=== PATIENT | male | born 1990 | race Caucasian/White ===

== ENCOUNTER 2016-12-29 17:02 | Emergency (ER) | payer SELFPAY ==
[~2016-12-29] VITALS: Ht 162.6 cm; Wt 110.0 kg
[2016-12-29 17:02] VITALS: BP 129/80; PULSE 112; RESP 20; TEMP 97.8; O2SAT 94
[~2016-12-29 17:02] MED LIST: ALBU17I; ALBU6.7H INH; PRED50 PO
[2016-12-29] MEDS ORDERED: SODIUM CHLOR 0.9% 1000 ML INJ 1,000 ML IV SCH (21:19)
--- NOTE | 2016-12-29 21:26 | PD ---
HPI Chief Complaint: Flank/Kidney Pain Time Seen by Provider: 21:19 Travel History International Travel<30 days: No Contact w/Intl Traveler<30days: No Traveled to known affect area: No History of Present Illness HPI Patient is a 26-year-old male who presents to emergency room with complaints of abdominal pain. Patient reports that 4 days ago, he woke up in the morning and had bilateral flank pain. Patient reports that the flank pain does radiate to his stomach. Patient reports that pain is persistent but reports that he has episodes of severe pain at times. Patient reports no nausea or vomiting with the symptoms. Patient denies any fevers or chills, constipation diarrhea. Patient denies hematuria, urinary urgency or frequency, penile discharge, denies history of stones in the past. Patient with no recent travels or trips. PFSH Past Medical History Asthma: Yes Autoimmune Disease: No Blood Disorders: No Anxiety: No Depression: No Cardiovascular Problems: No Developmental Delay: No Genitourinary: No Headaches: Yes (occasional;) Musculoskeletal: No Respiratory: Yes Past Surgical History Surgical History: No Previous Surgery Social History Alcohol Use: No Tobacco Use: No Substance Use: No Allergies-Medications (Allergen,Severity, Reaction): Coded Allergies: Dairy (Verified Allergy, Severe, 12/29/16) Reported Meds & Prescriptions Reported Meds & Active Scripts Active Reported Albuterol Neb (Albuterol Sulfate) 0.63 Mg/3 Ml Neb 0.63 Mg NEB Q4HR NEB PRN Review of Systems General / Constitutional: No: Fever Eyes: No: Visual changes HENT: No: Headaches Cardiovascular: No: Chest Pain or Discomfort Respiratory: No: Shortness of Breath Gastrointestinal: Positive: Abdominal Pain Genitourinary: Positive: Flank Pain, No: Dysuria Musculoskeletal: No: Pain Skin: No Rash Neurologic: No: Weakness Psychiatric: No: Depression Endocrine: No: Polydipsia Hematologic/Lymphatic: No: Easy Bruising Physical Exam Narrative GENERAL: Mild distress SKIN: Focused skin assessment warm/dry. HEAD: Atraumatic. Normocephalic. EYES: Pupils equal and round. No scleral icterus. No injection or drainage. ENT: No nasal bleeding or discharge. Mucous membranes pink and moist. NECK: Trachea midline. No JVD. CARDIOVASCULAR: Regular rate and rhythm. No murmur appreciated. RESPIRATORY: No accessory muscle use. Clear to auscultation. Breath sounds equal bilaterally. GASTROINTESTINAL: Abdomen soft, nondistended. Patient with bilateral flank pain with tenderness to lower abdomen, no rebound or guarding on exam MUSCULOSKELETAL: No obvious deformities. No clubbing. No cyanosis. No edema. NEUROLOGICAL: Awake and alert. No obvious cranial nerve deficits. Motor grossly within normal limits. Normal speech. PSYCHIATRIC: Appropriate mood and affect; insight and judgment normal. Data Data Last Documented VS Vital Signs Date Time Temp Pulse Resp B/P Pulse Ox O2 Delivery O2 Flow Rate FiO2 12/29/16 21:35 93 17 12/29/16 21:35 128/60 97 Room Air 12/29/16 17:02 97.8 Orders Complete Blood Count With Diff (12/29/16 21:19) Comprehensive Metabolic Panel (12/29/16 21:19) Lipase (12/29/16 21:19) Urinalysis - C+S If Indicated (12/29/16 21:19) Ct Abd/Pel W/O Iv Contrast (12/29/16 21:19) Iv Access Insert/Monitor (12/29/16 21:19) Morphine Inj (Morphine Inj) (12/29/16 21:30) Sodium Chlor 0.9% 1000 Ml Inj (Ns 1000 M (12/29/16 21:19) Sodium Chloride 0.9% Flush (Ns Flush) (12/29/16 21:30) Gc And Chlamydia Pcr (12/29/16 21:19) Diazepam (Valium) (12/29/16 21:30) Labs Laboratory Tests Test 12/29/16 21:50 White Blood Count 10.6 TH/MM3 Red Blood Count 5.10 MIL/MM3 Hemoglobin 14.8 GM/DL Hematocrit 42.4 % Mean Corpuscular Volume 83.1 FL Mean Corpuscular Hemoglobin 29.0 PG Mean Corpuscular Hemoglobin 34.9 % Concent Red Cell Distribution Width 12.7 % Platelet Count 220 TH/MM3 Mean Platelet Volume 8.6 FL Neutrophils (%) (Auto) 61.9 % Lymphocytes (%) (Auto) 23.4 % Monocytes (%) (Auto) 7.6 % Eosinophils (%) (Auto) 6.7 % Basophils (%) (Auto) 0.4 % Neutrophils # (Auto) 6.6 TH/MM3 Lymphocytes # (Auto) 2.5 TH/MM3 Monocytes # (Auto) 0.8 TH/MM3 Eosinophils # (Auto) 0.7 TH/MM3 Basophils # (Auto) 0.0 TH/MM3 CBC Comment DIFF FINAL Differential Comment Urine Color YELLOW Urine Turbidity CLEAR Urine pH 7.0 Urine Specific [place] 1.015 Urine Protein NEG mg/dL Urine Glucose (UA) NEG mg/dL Urine Ketones NEG mg/dL Urine Occult Blood NEG Urine Nitrite NEG Urine Bilirubin NEG Urine Urobilinogen LESS THAN 2.0 MG/DL Urine Leukocyte Esterase NEG Urine RBC LESS THAN 1 /hpf Urine WBC 4 /hpf Urine Squamous Epithelial <1 /hpf Cells Microscopic Urinalysis Comment CULT NOT INDICATED Sodium Level 138 MEQ/L Potassium Level 4.0 MEQ/L Chloride Level 101 MEQ/L Carbon Dioxide Level 29.7 MEQ/L Anion Gap 7 MEQ/L Blood Urea Nitrogen 10 MG/DL Creatinine 0.97 MG/DL Estimat Glomerular Filtration 94 ML/MIN Rate Random Glucose 87 MG/DL Calcium Level 8.7 MG/DL Total Bilirubin 0.6 MG/DL Aspartate Amino Transf 14 U/L (AST/SGOT) Alanine Aminotransferase 28 U/L (ALT/SGPT) Alkaline Phosphatase 102 U/L Total Protein 7.6 GM/DL Albumin 3.7 GM/DL Lipase 559 U/L MDM Medical Decision Making Medical Screen Exam Complete: Yes Emergency Medical Condition: Yes Interpretation(s) Vital Signs Date Time Temp Pulse Resp B/P Pulse Ox O2 Delivery O2 Flow Rate FiO2 12/29/16 17:02 97.8 112 20 129/80 94 Room Air Differential Diagnosis Muscle strain, pyelonephritis, urethritis, UTI, kidney stone, colitis, appendicitis Narrative Course 26-year-old male who presents to emergency room with complaints of bilateral flank pain and 4 days ago after he woke up from sleep. Patient reports that this pain has been persistent, has been intermittently worse. Patient reports that he did take a Motrin last night which seemed to help with his symptoms. Patient reports that he had similar symptoms which resolved after 2 days, reports that since this is 4 days of persistent pain, he decided to come to the ER for evaluation. Patient does have bilateral flank pain on exam with mild tenderness to lower abdomen, CT of abdomen and pelvis ordered to rule out kidney stone vs pyelonephritis. UA ordered to evaluate for possible UTI. Symptoms could be most likely from muscle strain , will treat with muscle relaxer and pain medications. BMP ordered to evaluate for renal fxn. CBC & BMP Diagram 12/29/16 21:50 Last Impressions Abdomen/Pelvis CT 12/29/169 Signed Impressions: Service Date/Time: Thursday, December 29, 2016 21:21 - CONCLUSION: 1. Minimal inflammatory changes are noted in the region of the uncinate process of the pancreas or duodenum raising the possibility of minimal acute pancreatitis or duodenitis. 2. No acute obstructive uropathy. Celestino Padilla MD wbc: wnl bmp: wnl LIPASE: 559 ct abdomen and pelvis: Minimal inflammatory changes are noted in the region of the uncinate process of the pancreas or the duodenum raising possibilities of minimal acute pancreatitis or duodenitis. I did review all labs and all studies with patient in detail. patient with most likely acute pancreatitis. Copies of patients CT report given to him. Patient comfortable with being discharged to home, reports "I'm hungry and want to eat a burger." Discussed with patient and his mother signs and symptoms of when to return to ER. Discussed need for clear liquid diet. Patient will follow up with pcp and GI doc and will return to ER as needed Diagnosis Primary Impression: Pancreatitis Qualified Code: K85.90 - Acute pancreatitis, unspecified complication status, unspecified pancreatitis type Referrals: Romel King MD Patient Instructions: General Instructions, Narcotic given in the ED Additional Instructions: Please provide patient with a copy of his studies and lab work at discharge Please eat a bland diet Please follow up with your primary care doctor as well as technical sales associate Please return to ER as needed or if symptoms progress or worsen or if you develop fever/chills, nausea or vomiting Disposition: 01 DISCHARGE HOME Condition: Stable Yudith Rodriguez DO Dec 29, 2016 21:26
[2016-12-29] MEDS ORDERED: DIAZEPAM 2 MG TAB PO ONE (21:30)
[2016-12-29] MEDS ORDERED: MORPHINE SULFATE 4 MG/ML INJ IV PUSH ONE (21:30)
[2016-12-29] MEDS ORDERED: SODIUM CHLORIDE 0.9% FLUSH 10 ML FLUSH IV FLUSH PRN (21:30)
[2016-12-29 21:35] VITALS: BP 128/60; PULSE 93; RESP 17; O2SAT 97
[2016-12-29] MEDS ORDERED: ALBU0.63 NEB (21:35)
--- NOTE | 2016-12-29 21:47 | RADRPT ---
EXAM DATE/TIME: 12/29/2016 21:21 [facility] COMPARISON: No previous studies available for comparison. INDICATIONS : Bilateral flank pain. ORAL CONTRAST: No oral contrast ingested. RADIATION DOSE: 29.15 CTDIvol (mGy) MEDICAL HISTORY : None SURGICAL HISTORY : None. ENCOUNTER: Initial ACUITY: 4 - 6 days PAIN SCALE: 7/10 LOCATION: Bilateral flank TECHNIQUE: Volumetric scanning of the abdomen and pelvis was performed. Using automated exposure control and ad justment of the mA and/or kV according to patient size, radiation dose was kept as low as reasonably achievable to obtain optimal diagnostic quality images. FINDINGS: LOWER LUNGS: The visualized lower lungs are clear. LIVER: Homogeneous density without lesion. There is no dilation of the biliary tree. No calcified gallston es. SPLEEN: Normal size without lesion. PANCREAS: Minimal inflammatory changes are noted in the region of the uncinate process of the pancreas or duode num raising the possibility of minimal acute pancreatitis or duodenitis. KIDNEYS: Normal in size and shape. There is no mass, stone, or hydronephrosis. ADRENAL GLANDS: Within normal limits. VASCULAR: There is no aortic aneurysm. BOWEL/MESENTERY: Minimal inflammatory changes are noted in the expected region of the second and third portions of the duodenum raising possibility of mild duodenitis. The stomach and colon demonstrate no acute abnormal ity. There is no free intraperitoneal air or fluid. The appendix is normal. ABDOMINAL WALL: Within normal limits. RETROPERITONEUM: There is no lymphadenopathy. BLADDER: No wall thickening or mass. REPRODUCTIVE: Within normal limits. INGUINAL: There is no lymphadenopathy or hernia. MUSCULOSKELETAL: Within normal limits for patient age. CONCLUSION: 1. Minimal inflammatory changes are noted in the region of the uncinate process of the pancreas or du odenum raising the possibility of minimal acute pancreatitis or duodenitis. 2. No acute obstructive uropathy. Celestino Padilla MD on December 29, 2016 at 21:41 Board Certified Radiologist. This report was verified electronically.
[2016-12-29 22:17] LABS: BLOOD, URINE NEG (NEG); COMMENT (UR) CULT NOT INDICATED; CULTURE IF INDICATED CULT NOT INDICATED; GLUCOSE,URINE NEG (NEG); KETONE, URINE NEG (NEG); NITRITE,URINE NEG (NEG); SQUAMOUS EPITHELIAL CELL URINE <1 /hpf (0-5); URINE COLOR YELLOW (YELLW/STRAW)
[2016-12-29 22:18] LABS: AUTOMATED NEUTROPHIL # 6.6 TH/MM3 (1.8-7.7); BASOPHIL % 0.4 % (0.0-2.0); EOSINOPHIL # 0.7 TH/MM3 (0-0.4); EOSINOPHIL % 6.7 % (0.0-4.0); HEMATOCRIT 42.4 % (39.0-51.0); HEMO FLAGS DIFF FINAL; LYMPH % 23.4 % (9.0-44.0); LYMPHOCYTE # 2.5 TH/MM3 (1.0-4.8); MEAN CELL VOLUME 83.1 FL (80.0-100.0); MEAN CORPUSCULAR HGB CONC 34.9 % (32.0-36.0); MONO % 7.6 % (0.0-8.0); NEUT % 61.9 % (16.0-70.0); PLATELET COUNT 220 TH/MM3 (150-450); RED CELL DISTRIBUTION WIDTH 12.7 % (11.6-17.2); WHITE BLOOD COUNT 10.6 TH/MM3 (4.0-11.0)
[2016-12-29 22:46] LABS: ANION GAP 7 MEQ/L (5-15); AST (GOT) 14 U/L (15-37); BICARBONATE 29.7 MEQ/L (21.0-32.0); BLOOD UREA NITROGEN 10 MG/DL (7-18); CHLORIDE 101 MEQ/L (98-107); GLOMERULAR FILTRATION RATE 94 ML/MIN (>89); SODIUM (NA) 138 MEQ/L (136-145)
[2016-12-29 22:49] LABS: ALKALINE PHOSPHATASE 102 U/L (45-117); ALT (GPT) 28 U/L (12-78); TOTAL BILIRUBIN ADULT 0.6 MG/DL (0.2-1.0)
[2016-12-30 00:19] LABS: CHLAMYDIA PCR NOT DETECTED (NOT DETECT); NEISSERIA PCR NOT DETECTED (NOT DETECT)
[2016-12-30 00:21] VITALS: BP 118/66
== END 2016-12-30 00:22 | disposition home or self-care (01) ==
LOC: NEPA 17:02
DX: K85.90 Acute pancreatitis without necrosis or infection, unspecified (principal); J45.909 Unspecified asthma, uncomplicated
CPT/HCPCS: 74176; 80053; 81001; 83690; 85025; 87491; 87591; 96374; 99284; J2270; J7030

== ENCOUNTER 2017-07-06 16:38 | Emergency (ER) | payer OTHER ==
[~2017-07-06] VITALS: Ht 162.6 cm; Wt 110.0 kg
[~2017-07-06 16:38] MED LIST changes: +ALBU0.63 NEB; -ALBU17I; -ALBU6.7H INH; -PRED50 PO
[2017-07-06 16:39] VITALS: BP 139/76; PULSE 100; RESP 18; TEMP 98.9; O2SAT 98
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
[2017-07-06] MEDS ORDERED: IBUP800T23 PO (17:59)
[2017-07-06] MEDS ORDERED: CYCL1TAB29 PO (17:59)
[2017-07-06] MEDS ORDERED: MAPA500T13 PO (17:59)
[2017-07-06] MEDS ORDERED: KETOROLAC TROMETHAMINE 60 MG/2 ML (IM) VIAL IM ONE (18:15)
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
== END 2017-07-06 18:23 | disposition home or self-care (01) ==
LOC: NEPK 16:38
DX: S16.1XXA Strain of muscle, fascia and tendon at neck level, initial encounter (principal); S20.219A Contusion of unspecified front wall of thorax, initial encounter; S46.912A Strain of unspecified muscle, fascia and tendon at shoulder and upper arm level, left arm, initial encounter; V49.59XA Passenger injured in collision with other motor vehicles in traffic accident, initial encounter; R51 Headache; J45.909 Unspecified asthma, uncomplicated
CPT/HCPCS: 70450; 71250; 72125; 73030; 96372; 99285; J1885